=== PATIENT | female | born 1990 | race Hispanic/Latino ===

== ENCOUNTER 2023-04-04 04:57 | Inpatient (IN) | payer OTHER ==
[~2023-04-04] VITALS: Ht 167.6 cm; Wt 106.6 kg
[2023-04-04 06:05] LABS: HEMOGLOBIN 10.3 g/dL (12.0-18.0); MCH 23.4 (27-36); MCHC 32.1 g/dl (30-36); MCV 72.8 fl (81-99); RBC 4.4 M/ul (4.3-5.7); RDW 16.3 (10.5-15.0)
[2023-04-04 06:33] LABS: AMPHETAMINES, UR NEGATIVE (NEGATIVE); BARBITURATES, UR NEGATIVE (NEGATIVE); BENZODIAZEPINES, UR NEGATIVE (NEGATIVE); COCAINE, UR NEGATIVE (NEGATIVE); MARIJUANA (THC), UR NEGATIVE (NEGATIVE)
[2023-04-04 06:34] LABS: BUPRENORPHINE,UR NEGATIVE (NEGATIVE); MDMA, UR NEGATIVE (NEGATIVE); METHADONE, UR NEGATIVE (NEGATIVE); METHAMPHETAMINE, UR NEGATIVE (NEGATIVE); OPIATES, UR NEGATIVE (NEGATIVE); OXYCODONE, UR NEGATIVE (NEGATIVE); PHENCYCLIDINE, UR NEGATIVE (NEGATIVE); TRICYCLIC ANTIDEPRESSANT, UR NEGATIVE (NEGATIVE)
[2023-04-04 06:49] LABS: ABO O; ANTIBODY SCREEN NEGATIVE; RH POSITIVE
--- NOTE | 2023-04-04 09:48 | NUR ---
04/04/23 0948 Josy Pond 0748 PT ARRIVED IN PACU WIDE AWAKE WITH NO C/O'S. 0750 BABY ON BREAST WITH HELP FROM [facility] RN. 0755 INTERPRETOR ON THE LINE TO ASSIST WITH TRANSLATION DURING . 0800 PT WITH MANY BREAST FEEDING QUESTIONS. 0805 BORDER PATROL AGENT IN ROOM ASSISTING PT. SPOUSE AT BEDSIDE. 0810 REPORT GIVEN TO [facility] RN. BED PLUGGED IN.
--- NOTE | 2023-04-04 19:34 | OR ---
[facility] [address] [place], [place] [address] Signed DATE OF OPERATION: 04/04/2023 SURGEON: Carole Bell MD HOISTER: MONTY Carpenter DO PREOPERATIVE DIAGNOSES: Term , previous section, active labor, prior tubal. POSTOPERATIVE DIAGNOSES: Term , previous section, active labor, prior tubal, delivered. PROCEDURE: Repeat section, low segment transverse uterine incision. ANESTHESIA: Spinal. ESTIMATED BLOOD LOSS: 600 mL. DRAINS: Riley catheter. INDICATIONS AND FINDINGS: The patient is a 32-year-old female 5, para 3, SAB 1, who was admitted at 38 and 6/7th weeks in early active labor. She had been scheduled for repeat section tomorrow. She had previously undergone an interval tubal ligation, but unfortunately was past midcycle at that time and had been using no control. Her LMP for this was the period prior to her tubal. At the time of surgery, she was delivered of a little girl via lower segment transverse uterine incision from the ROP position with Apgars of 9 and 9 and weight of 8 pounds 9 ounces. The uterus, ovaries, and placenta appeared normal. There was evidence of prior complete salpingectomy bilaterally. DESCRIPTION OF PROCEDURE: The patient was prepped and draped in the supine position. A repeat Pfannenstiel skin incision was made and carried down through the fascia. The incision was extended down to the fascia. The incision was extended laterally. The inferior and superior fascial Electronically Signed By: CAROLE BELL MD 04/04/23 1934 PATIENT NAME: SALUD OWEN OPERATIVE REPORT DATE OF : 89 REPORT #: [id number] PHYSICIAN: CAROLE BELL MD PCP: NO PRIMARY CARE PHYSICIAN REPORT IS CONFIDENTIAL AND NOT TO BE RELEASED WITHOUT AUTHORIZATION [facility] [address] [place], [place] [address] Signed flaps were then created. The peritoneum was opened sharply and the incision extended bluntly. The Khanh retractor was placed. The uterine incision was made at the upper aspect of the peritoneal reflection. The baby was delivered as the above findings and handed to the pediatric staff in attendance. The placenta was removed manually and the uterus explored with a lap tape assuring no remaining fragments. The edges of the incision were identified and the uterus was closed in 2 layers using 0 Monocryl. The first layer was a running locking stitch and the second was also a running locking stitch because of bleeding. The abdomen was irrigated, inspected, and the incision appeared hemostatic. Some bleeding points on the peritoneum were controlled with cautery. The retractor was removed. The peritoneum identified and was closed with a running suture of 3-0 Vicryl. The muscles were brought together with interrupted sutures of 0 Vicryl. There were bleeding points on the muscles, which were controlled with cautery as well as several sutures near the upper fascial dissection on the patient's right. This layer was irrigated, inspected and good hemostasis was noted. Because the amount of raw area, Avril was sprinkled over the muscles to aid in hemostasis. The fascia was closed from each angle to the midline with a running suture of 0 Vicryl. The subcu space was irrigated and bleeding points controlled with cautery. The remaining Avril was placed in the subcu space to aid in hemostasis. The deep space was closed with interrupted sutures of 3-0 Vicryl. The skin was closed with magalie. All sponge and needle counts were correct. She tolerated the procedure well and was taken to the recovery room in good condition. MD LARISSA Cortes/SHELBIL /[id number] Copies: ~ Electronically Signed By: CAROLE BELL MD 04/04/23 193 PATIENT NAME: SALUD OWEN OPERATIVE REPORT DATE OF : 89 REPORT #: [id number] PHYSICIAN: CAROLE BELL MD PCP: NO PRIMARY CARE PHYSICIAN REPORT IS CONFIDENTIAL AND NOT TO BE RELEASED WITHOUT AUTHORIZATION
[2023-04-05 06:04] LABS: HEMATOCRIT 25.2 % (35.0-50.0); MCHC 31.8 g/dl (30-36); MCV 72.3 fl (81-99); RBC 3.48 M/ul (4.3-5.7); RDW 16.5 (10.5-15.0)
--- NOTE | 2023-04-05 07:38 | PR ---
[facility] [address] [place], [place] [address] Signed PP Progress Notes Datetime Report Generated by CPRaleigh: 04/05/2023 07:38 SUBJECTIVE: [id number] Pain: Within Normal Limits Nausea/Vomiting: Denies Flatus: No Vital Signs: [id number] Vital Signs: Reviewed; Within Normal Limits Cardiovascular: Normal Respiratory: Normal Abdomen/Uterus: Abnormal Lochia: Normal Vulva/Perineum: Not Done Breasts: Not Done CVA Tenderness: Not Done Extremities: Normal Incision: Normal Progress: Abnormal Exam Comments: Abdomen with active BS. Fundus firm, NT @ U-1. H/H 8/25.2, WBC 13, plat 188k IMPRESSION/PLAN/PROCEDURES: [id number] Impression: Normal Progression Other Impression: Anemia Other Plans: Ambulate, shower Procedures: None Progress Notes: Pain well controlled with Motrin/Tylenol. Anemia well tolerated. Prob D/C in am if doing well. Signing Physician: Carole Bell MD Copies: ~ *Electronically Signed* 04/05/23 0738 CAROLE BELL MD PATIENT NAME: SALUD OWEN PROGRESS NOTE DATE OF : 89 PHYSICIAN: CAROLE BELL MD RPT #: [id number] REPORT IS CONFIDENTIAL AND NOT TO BE RELEASED WITHOUT AUTHORIZATION
[2023-04-05 23:26] VITALS: BP 109/61
--- NOTE | 2023-04-06 07:22 | PR ---
[facility] [address] [facility] [place], [place] [address] Signed PP Progress Notes Datetime Report Generated by CPN: 04/06/2023 07:22 SUBJECTIVE: [id number] Pain: Within Normal Limits Nausea/Vomiting: Denies Flatus: Yes Vital Signs: [id number] Vital Signs: Reviewed; Within Normal Limits Cardiovascular: Not Done Respiratory: Not Done Abdomen/Uterus: Abnormal Lochia: Normal Vulva/Perineum: Not Done Breasts: Not Done CVA Tenderness: Not Done Extremities: Normal Incision: Normal Progress: Abnormal Exam Comments: Fundus firm, NT @ U-2. IMPRESSION/PLAN/PROCEDURES: [id number] Impression: Normal Progression Other Impression: Anemia Plan: Remove [place]; Discharge Other Plans: Ambulate, shower Procedures: None Progress Notes: Doing well. She is ready for D/C. Signing Physician: Carole Bell MD Copies: ~ *Electronically Signed* 04/06/23721 CAROLE BELL MD PATIENT NAME: SALUD OWEN PROGRESS NOTE DATE OF : 89 PHYSICIAN: CAROLE BELL MD RPT #: [id number] REPORT IS CONFIDENTIAL AND NOT TO BE RELEASED WITHOUT AUTHORIZATION
--- NOTE | 2023-04-06 10:52 | NUR ---
[facility] ROUNDS. NURSING STAFF IN WITH PT. DID NOT INTERRUPT. PROVIDED SILENT PRAYER.
== END 2023-04-06 11:10 | disposition home or self-care (01) | DRG 788 ==
LOC: FBCO 04:57 → FBC 05:25
PROVIDERS: ADMIT Obstetrics & Gynecology; ATTEND Obstetrics & Gynecology
PROC: 10D00Z1 Extraction of Products of Conception, Low, Open Approach (ICD-10-PCS; principal; 2023-04-04 06:35)
DX: O34.211 Maternal care for low transverse scar from previous cesarean delivery (principal); Z3A.38 38 weeks gestation of pregnancy; Z37.0 Single live birth; O90.81 Anemia of the puerperium; D64.9 Anemia, unspecified
CPT/HCPCS: 01961; 36415; 76942; 80307; 85027; 86850; 86900; 86901; A9270; J0690; J1100; J1644; J2001; J2274; J2371; J2405; J2590; J2795; J3010; J7121